=== PATIENT | male | born 1955 | race Caucasian/White ===

== ENCOUNTER 2019-12-30 07:28 | Day surgery (SDC) | payer BC ==
--- NOTE | 2019-12-29 12:03 | RAD REPORT ---
EXAM DESCRIPTION: RAD - Chest Pa And Lat (2 Views) - 12/29/2019 11:49 am CLINICAL HISTORY: preop, pending heart catheterization COMPARISON: December 2017 TECHNIQUE: Frontal and lateral views of the chest were obtained. FINDINGS: The lungs are clear. Prominent left pulmonary artery matches comparison. Heart size is no rmal and central vasculature is within normal limits. No pleural effusion or pneumothorax seen. No acute bony finding noted. No aortic abnormality. IMPRESSION: No acute cardiopulmonary process. No significant change comparison.
[2019-12-29 12:12] LABS: Absolute Lymphocytes (CBC) 1.2 K/uL (0.7-4.9); Basophils % 0.6 % (0-1.3); Hematocrit 42.2 % (39.6-49.0); Lymphocytes % 26.7 % (15.3-44.8); RBC Red Blood Cell Count 4.56 M/uL (4.33-5.43)
[2019-12-29 12:20] LABS: Protime INR 0.89
--- NOTE | 2019-12-30 07:17 | EKG ---
Test Date: 2019-12-29 Test Time: 11:22:22 Identification And Records Commander: LIAT MEASUREMENT RESULTS: Intervals: Rate: 55 ID: [id number] QRSD: 108 QT: 422 QTc: 403 Dutton: P: 36 ID: [id number] QRS: 15 T: 9 INTERPRETIVE STATEMENTS: Sinus bradycardia Incomplete right bundle branch block Borderline ECG Compared to ECG 12/20/2003 07:35:00 Sinus rhythm no longer present Electronically Signed On 12-30-19 07:15:14 CDT by Gaurang Rogers
[~2019-12-30 07:28] MED LIST: HEPA 1000U/500MLS 2,000 UNIT/1,000 ML BAG IV ONE
[2019-12-30] MEDS ORDERED: NA CHLORIDE 0.9% 500 ML ONE (07:43)
[2019-12-30] MEDS ORDERED: MIDAZOLAM HCL 2 MG/2 ML INJ ONE ×2 (08:29→08:45)
[2019-12-30] MEDS ORDERED: HEPARIN 5000 UNIT/ML 1 ML VIAL ONE ×2 (08:29→08:30)
[2019-12-30] MEDS ORDERED: NICARDIPINE HCL 25 MG/10 ML IV ONE (08:30)
[2019-12-30] MEDS ORDERED: FENTANYL CITR 100 MCG/2 ML ONE (08:30)
[2019-12-30] MEDS ORDERED: ATROPINE SULF 1 MG/10 ML SYR IV ONE (08:30)
[2019-12-30] MEDS ORDERED: CLOPIDOGREL 75 MG TABLET ONE (09:03)
[2019-12-30] MEDS ORDERED: ASPIRIN 81 MG CHEWABLE TABLET ONE (10:02)
[2019-12-30 12:10] VITALS: O2SAT 96
[2019-12-30] MEDS ORDERED: ZOLPIDEM TARTRATE 5 MG TABLET PO PRN (12:43)
[2019-12-30 12:53] VITALS: BMI 28.5
[2019-12-30] MEDS ORDERED: NA CHLORIDE 0.9% 1,000 ML IV SCH (13:00)
[2019-12-30] MEDS ORDERED: NITROGLYCERIN 0.4 MG/TAB SL PRN (13:00)
[2019-12-30] MEDS ORDERED: PNEUMOCOCCAL VACCINE 0.5 ML IMVAC ONE (14:00)
--- NOTE | 2019-12-30 19:51 | OP ---
Date of Procedure: 12/30/2019 Surgeon: VICTOR MANUEL AREVALO Procedure Done: 1.Selective coronary angiogram. 2.Left heart catheterization. 3.Percutaneous coronary intervention of severe distal right coronary artery stenosis using a 2.5 x 1 2 mm Synergy drug-eluting stent, inflating stent balloon to 18 atmospheres, which gives a size of 2.7 mm. Access: Right radial artery 6-[place]an closed with TR band. Complications: None. Bleeding: Less than 10 mL. Total Sedation Time: 65 minutes. Description Of Procedure: After risks, benefits, and alternatives were explained to the patient, itzel hernandez signed a formal consent and was brought into the cardiac catheterization laboratory, prepped and draped in usual sterile fashion and we access right radial artery using pediatric micropuncture kit. Subsequently, we took a 6-[place] catheter over the J-wire into the aortic root and engaged th e left main coronary artery, then right coronary artery, and took standard views. Decided the distal RCA is the culprit for his symptoms, it was rather tortuous and heavily calcified lesion and it is a more than 80%. Decided to proceed with intervention. Hence, we exchanged for a 6-[place] JR4 guide, gave systemic heparin to assure ACT level above 250 throughout the procedure and then we took a shor t run-through wire across the lesion and then we took a 2.5 x 8 mm NC balloon and pre-dilated the les ion very well and then took the 2.5 x 12 mm Synergy drug-eluting stent, could not pass it initially. We dilated the lesion further with an NC balloon and then we put another run-through wire to serve a s a mahogany wire and then we took the stent successfully across the stenosis and inflated it to high pr essure of 18 atmospheres, which gives a size of 2.7 as a stent of 2.75 size was not available in the cardiac cath lab radiology technologist. DARINEL-3 flow was present. Postprocedure, no complications. We took multiple pictures afte r the wire was removed with excellent results. I removed the wires and the guide and the sheath and put a TR band for closure. 600 mg Plavix was given on the table. Indication For Procedures: Unstable angina with positive stress test showing apical ischemia. Findings: 1.Pxiz-gz-tittjunm mid left anterior stenosis. FFR/FR is not available to further evaluate, but the vessel does not reach the apex. 2.Moderate first OM stenosis in the proximal portion, again FR was not available to further test. 3.Severe distal RCA stenosis. The vessel supplying the apex is likely the culprit for symptoms stat us post PCI as above. Recommendations: 1.We will admit overnight for observation, the patient was loaded with Plavix 600 mg today on the ca th table, continue 75 mg daily. Continue aspirin 81 mg daily. 2.Increase Lipitor to 80 mg daily. 3.Aggressive cardiac risk factor modification. SR/MODL Voice ID: [id number] Report ID: [id number]
--- NOTE | 2019-12-30 20:39 | RAD REPORT ---
EXAM DESCRIPTION: RAD - Lumbar Spine 3 Views - 12/30/2019 8:30 pm CLINICAL HISTORY: pain Radiculopathy COMPARISON: SPINE LUMBAR W OBLIQUE dated 04/11/2009; SPINE LUMBAR W OBLIQUE dated 03/14/2009 FINDINGS: Mild wedging is present of the vertebral bodies at the thoracolumbar junction, chronic in appearance. Prominent disc thinning with vacuum disc degeneration and mild anterolisthesis is seen of L4 on 5. Mild lower lumbar facet hypertrophy. Aortic atherosclerosis. IMPRESSION: Moderate L4-5 spondylosis.
--- NOTE | 2019-12-30 20:40 | RAD REPORT ---
EXAM DESCRIPTION: RAD - Hip Bilateral With Pelvis - 12/30/2019 8:32 pm CLINICAL HISTORY: pain Pain and swelling COMPARISON: No comparisons FINDINGS: Severe osteoarthritis affects the right hip. Mild osteoarthritis affects the left hip. No fracture, dislocation or AVN.
[2019-12-30] MEDS ORDERED: ATORVASTATIN 80 MG TAB PO SCH (21:00)
[2019-12-30] MEDS: ACETAMINOPHEN 325 MG TABLET PO PRN (21:32)
--- NOTE | 2019-12-31 00:03 | HP ---
Date of Admission: 12/30/2019 Reason For Admission: Coronary artery disease. History Of Present Illness: This is a 64-year-old very pleasant male patient who had coronary artery angiogram done today and he was found to have significant coronary artery disease that required sten t placement. 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 His angiogram was down through right radial artery approach. I saw him this evening. Patient did receive loading dose of Plavix. When I saw him this evening, he did not have any chest pain or any complaints of any pain in his right hand or right wrist area. He did inform me that for last few months he is having pain in his right lateral hip region and describes location as right gre ater trochanter region and also has some pain in his right lower back. This pain is intermittent. S ometime he wakes up in the morning with the pain and sometime he has it in the middle of the day. Wh en he does have pain, he has little bit difficulty walking. No tingling, numbness of legs. No fall. No injury. Allergies: TO CODEINE. Medications: Amlodipine 5 mg p.o. daily, metoprolol succinate 25 mg p.o. 2 times a day, aspirin 81 m g p.o. daily, atorvastatin 20 mg p.o. daily. Review of Systems: Musculoskeletal: As mentioned above. All other systems reviewed negative. Past Medical History: Significant for hypertension, hyperlipidemia, hypothyroidism, diverticulosis, benign prostatic hypertrophy, erectile dysfunction and coronary artery disease, psoriasis. Past Surgical History: Negative so far new past surgical history is coronary artery angioplasty with stent placement done today. Family History: Father , had coronary artery disease, diabetes, hypertension. Mother , had congestive heart failure and hypertension. Brother with history of DVT. Social History: Presence of smoking and he smokes some days. Use of alcohol: Occasional use of beer . Physical Examination: Vital Signs: Temperature 97.8, pulse 79, respiratory rate 16, blood pressure 94/64, oxygen saturatio n 98%. Height 5 feet 4 inches, weight 166 pounds. General: Awake, alert, oriented, not in distress. HEENT: Head atraumatic, normocephalic. Conjunctivae nonerythematous. Sclerae white. Mouth, no thr ush or edema noted. Ears/Nose, no mass, lesion, discharge noted. Neck: Supple. No JVD, lymph nodes, bruit, thyromegaly noted. Lungs: Bilateral good equal air entry. Clear to auscultation. No rhonchi. No rales. Heart: Normal heart sounds, no murmur or gallop. Abdomen: Soft, bowel sounds normal. No guarding, rigidity, tenderness, mass, hepatosplenomegaly, dis tention, or bruit noted. Extremities: Right wrist has dressing present which was not removed. Range of motion is normal at w rist and fingers and neurovascular status of right hand is normal. Skin: No rash, ulcer, cellulitis. Lymphatics: No lymph node enlargement in neck, supraclavicular, infraclavicular region. Neuro: No focal neurological deficit. Chest: Unremarkable. External Genitalia: Deferred. Rectal: Deferred. Laboratory Data: White count 4.5, hemoglobin 13.6, platelets 264. Sodium 140, potassium 5, chloride 104, bicarb 30, BUN 17, creatinine 1.01, glucose 101. Impression: 1.Coronary artery disease. 2.Hypertension. 3.Hyperlipidemia. 4.Diverticulosis. 5.Benign prostatic hypertrophy. 6.Right hip pain. Plan: We will go ahead and admit the patient to hospital. Home medications will be kept on hold at this point considering his blood pressure on the low side. Patient is on aspirin, Plavix per cardiol ogist, we will continue that. High dose statin therapy with Lipitor 80 mg daily will be continued. We will go ahead and order x-ray of his hip, pelvis and lumbar spine, which will be done tonight. I will see him in the morning for followup. Our plan is to discharge him to go home tomorrow. Patient was advised to avoid any strenuous activity with his right hand for 1 week and he was advised not to lift more than a cup of tea or cup of coffee for next 1 week, see him in the morning. TONY/MODL Voice ID: [id number]
[2019-12-31 06:20] LABS: Basophils % 0.8 % (0-1.3); Hematocrit 39.1 % (39.6-49.0); Lymphocytes % 28.5 % (15.3-44.8); MPV 8.2 fL (7.6-11.3); RBC Red Blood Cell Count 4.31 M/uL (4.33-5.43)
[2019-12-31 06:49] LABS: BUN Blood Urea Nitrogen 14 mg/dL (7-18); Bicarbonate 28 mmol/L (21-32); Glucose Level 103 mg/dL (74-106); Potassium 4.2 mmol/L (3.5-5.1); Sodium Level 139 mmol/L (136-145)
[2019-12-31] MEDS: ACETAMINOPHEN 325 MG TABLET PO PRN (07:02)
[2019-12-31 07:57] VITALS: BP 117/81; TEMP 97.5
[2019-12-31 08:35] LABS: Platelet Estimate ADEQ
[2019-12-31] MEDS ORDERED: ASPIRIN 81 MG CHEWABLE TABLET PO SCH (09:00)
[2019-12-31] MEDS ORDERED: CLOPIDOGREL 75 MG TABLET PO SCH (09:00)
--- NOTE | 2020-01-01 00:10 | DS ---
Date of Discharge: 12/31/2019 Disposition: Discharged to go home. Physical Examination: HEENT: Unremarkable. Lungs: Clear to auscultation. Heart: Sounds normal. Abdomen: Soft. Bowel sounds normal. No guarding, rigidity, tenderness, or distention. Extremities: No leg edema. Discharge Medications And Instructions: Continue all prior home medication, except stop amlodipine a nd stop atorvastatin 20 mg dose. Continue to take your aspirin 81 mg daily and metoprolol as you were taking before. Start taking new medications as below; Atorvastatin 80 mg p.o. daily at bedtime, and clopidogrel 75 m g p.o. daily. Follow up at my office on 01/04/2020, and patient to come to my office for blood work to be done on 0 01/03/2020 and his blood work will be repeated. Hospital Course: This 64-year-old male patient admitted to the hospital after he had cardiac cath an d stent placement of right coronary artery. Please see dictated H and P for more information. After patient had stent placement using right radial artery approach, he was admitted to the hospital. Hi s condition remained stable. This morning when I saw him, he had no complaints. No chest pain, no s hortness of breath. His wrist area and right hand exam is normal. Neurovascular status is normal. Patient was complaining of right hip and lower back pain and yesterday we did x-ray of bilateral hips and lumbosacral spine. His hip x-ray shows mild osteoarthritis of left hip and moderate osteoarthri tis changes involving lumbar spine and advanced osteoarthritis changes of right hip. All these x-ray results were reviewed with him and he was made aware that eventually he will need to have some hip s urgery done, but no elective surgery should be done for the next 6 months, so sometime next year we w ill consider referring him to pharmacy retail support specialist. He was made aware of importance of taking clopi dogrel on a daily basis to reduce any risk of restenosis or stent closure. When I see him next week on Friday I will give him work release at that time. Laboratory Data: On 12/29/2019 white count 4.5, hemoglobin 13.6, platelets 264. Today, white count 3.4, hemoglobin 13.1, platelets 208. Chemistry today; sodium 139, potassium 4.2, chloride 105, bicar b 28, BUN 14, creatinine 0.80, glucose 103. Discharge Diagnoses: 1.Coronary artery disease status post angioplasty with stent placement of right coronary artery. 2.Osteoarthritis, multiple sites. 3.Pancytopenia. 4.Hypertension. 5.Hyperlipidemia. 6.Diverticulosis. 7.Benign prostatic hypertrophy. TONY/MODL Voice ID: [id number] Report ID: [id number]
== END 2019-12-31 09:45 | disposition home or self-care (01) ==
LOC: CCL 07:28 → 4TH 11:41 → UNDOADMIN 11:53 → CCL 12-31 09:45
PROVIDERS: ATTEND Internal Medicine
DX: I25.110 Atherosclerotic heart disease of native coronary artery with unstable angina pectoris (principal); Z11.59 Encounter for screening for other viral diseases; I10 Essential (primary) hypertension; R01.1 Cardiac murmur, unspecified; E78.5 Hyperlipidemia, unspecified; D61.818 Other pancytopenia; M15.9 Polyosteoarthritis, unspecified; K57.90 Diverticulosis of intestine, part unspecified, without perforation or abscess without bleeding; N40.0 Benign prostatic hyperplasia without lower urinary tract symptoms; E03.9 Hypothyroidism, unspecified; L40.9 Psoriasis, unspecified; N52.9 Male erectile dysfunction, unspecified; F17.210 Nicotine dependence, cigarettes, uncomplicated; Z79.82 Long term (current) use of aspirin; Z88.6 Allergy status to analgesic agent; Z82.49 Family history of ischemic heart disease and other diseases of the circulatory system; Z83.3 Family history of diabetes mellitus
CPT/HCPCS: 93005 ×2; 85025 ×2; 80048 ×2; 36415 ×2; 85049; 85610; 85347 ×2; 85730; 71046; 73521; 72100; 92928; 93458; U0002; C1893; C1725; J1644 ×2; J2250 ×2; J3010; J7040

== ENCOUNTER 2025-03-03 06:30 | Day surgery (SDC) | payer BC, OTHER ==
[2025-03-01 13:28] LABS: Absolute Lymphocytes (CBC) 1.3 K/uL (0.7-4.9); Hematocrit 40.0 % (39.6-49.0); Hemoglobin 13.0 g/dL (13.6-17.9); MCH 27.6 pg (27.0-35.0); MCHC 32.4 g/dL (32.0-36.0); MCV 85.0 fL (80-100); MPV 7.9 fL (7.6-11.3); Nucleated RBC Absolute Count 0.0 (0-0); Nucleated Red Blood Cells % 0.1 % (0-0); RBC Red Blood Cell Count 4.70 M/uL (4.33-5.43); White Blood Count 5.50 thou/uL (4.3-10.9)
[2025-03-01 13:36] LABS: PT Prothrombin Time 10.5 SECONDS (10-13.0); PTT, Activated Partial Thromb 31.0 SECONDS (27.2-37.4); Protime INR 0.93
[2025-03-01 13:47] LABS: Anion Gap 6.5 mEq/L (5.0-15.0); BUN Blood Urea Nitrogen 24.0 mg/dL (7-18); Glucose Level 111.0 mg/dL (74-106); Potassium 4.5 mEq/L (3.5-5.1)
--- NOTE | 2025-03-01 22:17 | RAD REPORT ---
EXAMINATION: TWO VIEW CHEST XR CLINICAL INDICATION: Male, 69 years old. [facility] Pre-op pending heart catheterization. Hypertension TECHNIQUE: 2 view radiographs of the chest were performed. COMPARISON: 12/29/2019 FINDINGS: The lungs are well inflated and clear. No pneumothorax or sizable effusion. The heart is normal in si ze. Mediastinal contours are unremarkable. IMPRESSION: No acute or significant abnormalities.
[2025-03-03] MEDS ORDERED: NITROGLYCERIN/D5W 50 MG/250 ML BTL IV ONE (06:37)
[2025-03-03] MEDS ORDERED: HEPA 1000U/500MLS 2,000 UNIT/1,000 ML BAG IV ONE (06:37)
[2025-03-03] MEDS ORDERED: HEPARIN 10,000 UNIT/10 ML VIAL IV ONE (06:38)
[2025-03-03] MEDS ORDERED: ATROPINE SULF 1 MG/10 ML SYR IV ONE (06:38)
[2025-03-03] MEDS ORDERED: CLOPIDOGREL 75 MG TABLET ONE (06:38)
[2025-03-03] MEDS ORDERED: LIDOCAINE 1% 20 ML MDV ONE (06:38)
[2025-03-03] MEDS ORDERED: ASPIRIN 325 MG TAB ONE (06:39)
[2025-03-03] MEDS ORDERED: HEPARIN 5000 UNIT/ML 1 ML VIAL ONE (06:39)
[2025-03-03] MEDS ORDERED: TICAGRELOR 90 MG TABLET PO ONE (06:39)
[2025-03-03] MEDS ORDERED: NA CHLORIDE 0.9% 500 ML ONE (06:43)
[2025-03-03] MEDS ORDERED: VERAPAMIL HCL 10 MG/4 ML VIAL IV ONE (06:47)
[2025-03-03] MEDS ORDERED: MIDAZOLAM HCL 2 MG/2 ML INJ ONE (06:55)
[2025-03-03] MEDS ORDERED: FENTANYL CITR 100 MCG/2 ML ONE (06:55)
[2025-03-03] MEDS ORDERED: NALOXONE 0.4 MG/ML VIAL ONE (07:09)
[2025-03-03] MEDS ORDERED: FLUMAZENIL 0.1 MG/ML (5 mL VIAL) IV ONE (07:09)
--- NOTE | 2025-03-03 08:16 | OP ---
Date of Procedure: 03/03/2025 Surgeon: VICTOR MANUEL AREVALO Procedures Performed: 1. Selective coronary angiogram. 2. Left heart catheterization. Indication: Unstable angina. Access: Right radial artery 6-[place], closed with TR band. Complications: None. Bleeding: Less than 50 mL. Total Sedation Time: 45 minutes, used fentanyl and Versed. Description Of Procedure: After risks, benefits, and alternatives were explained, the patient agreed to procedure and signed informed consent. The patient was brought into cardiac catheterization [facility], prepped and draped in sterile fashion. Then, I accessed the right radial artery using pediat rossy micropuncture kit and ultrasound guidance, placed a 6-[place] Island[place] Slender sheath and took 5-[place] Tig er 4 catheter over J-wire into the aortic root, engaged the left main, could not get proper engagemen t. Then, engaged the RCA and took standard views and crossed the aortic valve over the wire and alvaro ured the LVEDP. Pullback did not record any gradient and exchanged for 6-[place] Island[place] JL3.5 catheter over a J-wire and engaged left main, took standard views and removed the catheter and the sheath, placed T R band with good hemostasis. Findings: 1. Left main, large and normal. 2. LAD, there is proximal 50% stenosis right before the diagonal takeoff. Diagonal 1 is large vessel , has mid 40% stenosis. Rest of the LAD looks normal and it gives very large collateral to the PDA. 3. Left circumflex; moderate size and normal. 4. RCA, FINE SANDER proximally with very large collaterals coming from the LAD. 5. LVEDP is elevated at 70 mmHg. Conclusion: FINE SANDER of the RCA and moderate coronary artery disease elsewhere and collaterals from the L AD to the RCA. Recommendation: Medical management and repeat cardiac stress test in 6 months to evaluate the LAD le sukumar. SR/MODL Voice ID: [id number] Report ID: [id number]
[2025-03-03 10:01] VITALS: O2SAT 96
[2025-03-03 10:03] VITALS: BP 130/71
== END 2025-03-03 09:55 | disposition home or self-care (01) ==
LOC: CCL 06:30
PROVIDERS: ATTEND Internal Medicine
DX: I25.110 Atherosclerotic heart disease of native coronary artery with unstable angina pectoris (principal); I25.82 Chronic total occlusion of coronary artery; I65.21 Occlusion and stenosis of right carotid artery; R01.1 Cardiac murmur, unspecified; I10 Essential (primary) hypertension; E78.5 Hyperlipidemia, unspecified; Z87.891 Personal history of nicotine dependence; Z79.82 Long term (current) use of aspirin; Z79.899 Other long term (current) drug therapy
CPT/HCPCS: 93005; 85025; 80048; 36415; 85610; 85730; 71046; 93458; 76937; C1893; Q9967; J1644 ×2; J2003; J2250; J3010; J7040; 99152; 99153; J0461; J2310